=== PATIENT | male | born 1930 | race Caucasian/White ===

== ENCOUNTER → 2017-01-26 | Outpatient (CLI) | payer MEDICARE | END | disposition home or self-care (01) | LOC: PCVCCLINIC 13:33 | PROVIDERS: ATTEND Internal Medicine Cardiovascular Disease | DX: I48.2 Chronic atrial fibrillation (principal); E78.5 Hyperlipidemia, unspecified; I25.10 Atherosclerotic heart disease of native coronary artery without angina pectoris; I87.2 Venous insufficiency (chronic) (peripheral); I65.23 Occlusion and stenosis of bilateral carotid arteries; I34.0 Nonrheumatic mitral (valve) insufficiency; C44.92 Squamous cell carcinoma of skin, unspecified; E11.9 Type 2 diabetes mellitus without complications; Z79.4 Long term (current) use of insulin; Z87.891 Personal history of nicotine dependence; Z79.899 Other long term (current) drug therapy | CPT/HCPCS: 80061; 93005; G0463 ==

== ENCOUNTER → 2017-09-11 | Outpatient (CLI) | payer MEDICARE ==
[~2017-09-11] MED LIST: REGADENOSON 0.4 MG/5 ML DISP.SYRIN. IV
== END | disposition home or self-care (01) ==
LOC: PCVCIMAG 07:43
DX: I08.3 Combined rheumatic disorders of mitral, aortic and tricuspid valves (principal); I48.2 Chronic atrial fibrillation; I25.10 Atherosclerotic heart disease of native coronary artery without angina pectoris; E78.00 Pure hypercholesterolemia, unspecified; E11.9 Type 2 diabetes mellitus without complications; I11.0 Hypertensive heart disease with heart failure; I50.9 Heart failure, unspecified; E78.5 Hyperlipidemia, unspecified; Z87.891 Personal history of nicotine dependence; Z79.899 Other long term (current) drug therapy; Z79.4 Long term (current) use of insulin
CPT/HCPCS: 78452; 80061; 93005; 93017; 93306; A9500; G0463; J2785

== ENCOUNTER → 2018-04-20 | Outpatient (CLI) | payer MEDICARE | END | disposition home or self-care (01) | LOC: PCVCCLINIC 10:06 | PROVIDERS: ATTEND Internal Medicine Cardiovascular Disease | DX: I25.10 Atherosclerotic heart disease of native coronary artery without angina pectoris (principal); I77.810 Thoracic aortic ectasia; I48.2 Chronic atrial fibrillation; I65.23 Occlusion and stenosis of bilateral carotid arteries; I10 Essential (primary) hypertension; I34.0 Nonrheumatic mitral (valve) insufficiency; I87.2 Venous insufficiency (chronic) (peripheral); I36.1 Nonrheumatic tricuspid (valve) insufficiency; E11.9 Type 2 diabetes mellitus without complications; E78.00 Pure hypercholesterolemia, unspecified; M54.9 Dorsalgia, unspecified; Z79.899 Other long term (current) drug therapy; Z79.4 Long term (current) use of insulin | CPT/HCPCS: 36415; 80061; 93005; G0463 ==

== ENCOUNTER → 2018-09-20 | Outpatient (CLI) | payer MEDICARE | END | disposition home or self-care (01) | LOC: PCVCCLINIC 15:00 | PROVIDERS: ATTEND Internal Medicine Cardiovascular Disease | DX: I25.10 Atherosclerotic heart disease of native coronary artery without angina pectoris (principal); I48.2 Chronic atrial fibrillation; I38 Endocarditis, valve unspecified; R94.31 Abnormal electrocardiogram [ECG] [EKG]; E78.00 Pure hypercholesterolemia, unspecified; I11.0 Hypertensive heart disease with heart failure; I50.43 Acute on chronic combined systolic (congestive) and diastolic (congestive) heart failure; R60.9 Edema, unspecified; E11.9 Type 2 diabetes mellitus without complications; Z87.2 Personal history of diseases of the skin and subcutaneous tissue; Z79.4 Long term (current) use of insulin; Z79.899 Other long term (current) drug therapy | CPT/HCPCS: 36415; 80061; 93005; G0463 ==

== ENCOUNTER → 2019-04-17 | Outpatient (CLI) | payer MEDICARE ==
[~2019-04-17] MED LIST changes: -REGADENOSON 0.4 MG/5 ML DISP.SYRIN. IV; +REGADENOSON 0.4 MG/5 ML DISP.SYRIN. IV ONE
--- NOTE | 2019-04-17 13:38 | PCVCIMAG ---
APPROVED REPORT Study performed: 04/17/2019 08:02:13 EXAM: Comprehensive 2D, Doppler, and color-flow Echocardiogram Patient Location: Echo lab Room #: 3Status: routine BSA: 1.78 HR: 65 bpmBP: 114/60 mmHg Rhythm: Atrial Fibrillation with occasional PVCs Other Information Study Quality: Good Risk Factors: Cardiac Risk Factors: HTN, Hyperlipidemia, DM Indications Pulmonary Hypertension Atrial Fibrillation CAD Aortic root dilitation 2D Dimensions IVSd: 9.62 (7-11mm)LVOT Diam: 19.02 (18-24mm) LVDd: 45.02 mm PWd: 9.11 (7-11mm)Ascending Ao: 43.25 (22-36mm) LVDs: 28.75 (25-40mm) Left Atrium: 45.02 (27-40mm) Aortic Root: 24.11 mm LV Single Plane 4CH: 56.45 % LV Single Plane 2CH: 57.92 % Biplane EF: 56.1 % Volumes Left Atrial Volume (Systole) Single Plane 4CH: 87.14 mLSingle Plane 2CH: 93.61 mL Biplane LA Volume: 112.00 mLLA ESV Index: 62.00 mL/m2 Aortic Valve AoV Peak Harish.: 2.47 m/s AO Peak Gr.: 23.70 mmHgLVOT Max P.44 mmHg AO Mean Gr.: 11.90 mmHgLVOT Mean P.06 mmHg AO V2 Mean: 1.64 m/sLVOT Max V: 0.76 m/s AO V2 VTI: 41.14 cmLVOT Mean V: 0.48 m/s JASEN (VTI): 0.87 [id number] V1 VTI: 12.65 cm JASEN Vmax: 0.87 cm2 SV (LVOT): 35.91 mL Mitral Valve MV E Max Harish.: 1.12 m/s MV VTI: 135.79 mm MVA VTI: 264.49 mm2 MV PHT: 55.59 ms MVA (PHT): 3.96 cm2 IVRT: 93.43 ms TDI E/Lateral E': 7.47E/Medial E': 12.44 Medial E' Harish.: 0.09 m/s Lateral E' Harish.: 0.15 m/s Pulmonary Valve PV Peak Harish.: 1.01 m/sPV Peak Gr.: 4.08 mmHg Tricuspid Valve TR Peak Harish.: 2.33 m/s TR Peak Gr.: 21.68 mmHg TV Vmax: 0.96 m/sPA Pressure: 32.00 mmHg Left Ventricle The left ventricle is normal size. Flattened septum consistent with right ventricular volume and pressure overload. There is normal left ventricular wall thickness. Left ventricular systolic function is normal. The left ventricular ejection fraction is within the normal range. LVEF is 55-60%. This study is not technically sufficient to allow evaluation of the LV diastolic function due to atrial fibrillation. Right Ventricle Right ventricle is mildly dilated. The right ventricular systolic function is normal. Atria Left atrium is severely dilated. Right atrium is severely dilated. Aortic Valve Aortic valve is trileaflet. Aortic valve leaflets are sclerotic with decreased opening. No aortic regurgitation is present. 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 Calculated aortic valve area is 0.9 cm2 with maximum pressure gradient of 24 mmHg and mean pressure gradient of 12 mmHg. Mitral Valve Mitral valve leaflets are mildly thickened. Mild mitral annular calcification. Mild to moderate mitral regurgitation. No evidence of mitral valve stenosis. Tricuspid Valve The tricuspid valve is normal in structure. Severe tricuspid regurgitation with a PA pressure of 32 mmHg. Mild pulmonary hypertension. Pulmonic Valve The pulmonary valve is normal in structure. There is no pulmonic valvular regurgitation. Great Vessels The aortic root is normal in size. Ascending aorta is dilated. Aortic arch is mildly dilated. IVC is normal in size and collapses <50% with inspiration. Pericardium There is no pericardial effusion. There is no pleural effusion. <Conclusion> The left ventricle is normal size. LVEF is 55-60%. This study is not technically sufficient to allow evaluation of the LV diastolic function due to atrial fibrillation. Right ventricle is mildly dilated. Left atrium is severely dilated. Right atrium is severely dilated. Aortic valve is trileaflet. Aortic valve leaflets are sclerotic with decreased opening. 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 Calculated aortic valve area is 0.9 cm2 with maximum pressure gradient of 24 mmHg and mean pressure gradient of 12 mmHg. Mitral valve leaflets are mildly thickened. Mild mitral annular calcification. Mild to moderate mitral regurgitation. Severe tricuspid regurgitation with a PA pressure of 32 mmHg. Mild pulmonary hypertension. The aortic root is normal in size. Ascending aorta is dilated. Aortic arch is mildly dilated. There is no pericardial effusion.
--- NOTE | 2019-04-17 13:39 | PCVCIMAG ---
APPROVED REPORT Imaging Protocol: Rest Tc-99m/Stress Tc-99m 1 day Study performed: 04/17/2019 09:27:24 Indication: Atrial Fibrillation, Pre-Operative CV evaluation, CAD, CKD Patient Location: Out-Patient Stress Nurse: Viry Domínguez RN, Pretty Givens RN AR Tech:LORNE PruittMT Ht: 5 ft 7 in Wt: 165 lbs BSA: 1.86 m2 HR: 71 bpm BP: 172/88 mmHg BMI: 25.8 Rhythm: Atrial Fibrillation with PVC's Medical History Medical History: Atrial Fibrillation, CHF, CAD, CVD, Diabetic Insulin Medications: Eliquis, Actos, Crestor, Aldactone Allergies: No known drug allergies Cardiac Risk Factors: Age Pretest Chest Pain Characteristics: No chest pain Resting Data Rest SPECT myocardial perfusion imaging was performed in supine position 45 minutes following the intravenous injection of 11.3 mCi of Tc-99m Sestamibi. Time of rest injection: 0900 Date: 04/17/2019 Administration Route: IV Administration Site: Right AC Pharmacologic Stress Pharmacologic stress test was performed by injecting Regadenoson 0.4 mg IV push over 10-15 seconds immediately followed by the intravenous injection of 32.5 mCi of Tc-99m Sestamibi. Time of stress injection: 1030 Date: 04/17/2019 Administration Route: IV Administration Site: Right AC Gated Stress SPECT was performed 45 minutes after stress injection. The images were gated to evaluate regional wall motion and calculate left ventricular ejection fraction. Stress Test Details Stress Test: Pharmacologic stress testing performed using 0.4 mg of regadenoson per 5 mL given IV over 10 seconds. Reason for pharmacologic stress test: physical limitation, back issues. HRMax Heart Rate (APMHR): 134 bpm Resting HR: 71 bpmTarget HR (85% APMHR): 113 bpm Max HR Achieved: 83 bpm % of APMHR: 61 Recovery HR: 68 bpm BP Resting BP: 172/88 mmHg Max BP: 146/68 mmHg Recovery BP: 130/66 mmHg ECG Resting ECG: Atrial Fibrillation with PVC's Stress ECG: Atrial Fibrillation with PVC's Arrhythmia: None Recovery ECG: Atrial Fibrillation with PVC's Clinical Reason for Termination: Completed protocol Stress Symptoms: None Stress ECG Conclusion ECG: Non-ischemic Study Quality Study: Good Study Data Post stress, the left ventricular ejection was 64%.. SSS: 0 SRS: 0 SDS: 0 TID = 1.07. Perfusion No evidence of stress induced ischemia or prior myocardial infarction. Wall Motion Normal left ventricular size and function with no regional wall motion abnormalities. Nuclear Conclusion No evidence of stress induced ischemia or prior myocardial infarction. Normal left ventricular size and function with no regional wall motion abnormalities. Post stress, the left ventricular ejection was 64%. No change since prior study dated August 2015. Interpreted by: Hayden Tenorio MD Electronically Approved: 04/17/2019 12:24:28 <Conclusion> ECG: Non-ischemic
== END | disposition home or self-care (01) ==
LOC: PCVCIMAG 08:09
PROVIDERS: ATTEND Internal Medicine Cardiovascular Disease
DX: I25.10 Atherosclerotic heart disease of native coronary artery without angina pectoris (principal); I48.21 Permanent atrial fibrillation; I11.0 Hypertensive heart disease with heart failure; I50.43 Acute on chronic combined systolic (congestive) and diastolic (congestive) heart failure; I77.810 Thoracic aortic ectasia; I87.2 Venous insufficiency (chronic) (peripheral); I65.23 Occlusion and stenosis of bilateral carotid arteries; C91.11 Chronic lymphocytic leukemia of B-cell type in remission; E78.00 Pure hypercholesterolemia, unspecified; E78.5 Hyperlipidemia, unspecified; Z80.2 Family history of malignant neoplasm of other respiratory and intrathoracic organs
CPT/HCPCS: 78452; 93017; 93306; A9500; G0463; J2785